=== PATIENT | female | born 1980 | race Hispanic/Latino ===

== ENCOUNTER 2020-01-20 02:59 | Emergency (ER) | payer SELFPAY ==
[~2020-01-20] VITALS: Ht 162.6 cm; Wt 105.2 kg
--- NOTE | 2020-01-20 03:30 | Emergency Department Note ---
History of Present Illnes History of Present Illness Chief Complaint: Extremity Trauma/Pain History of Present Illness This is a 39 year old female right sided toure pain with swelling for 3 weeks. Patient states she saw a PCP recently and was told she was diabetic and to follow up with him in a couple of weeks if pain did not go away. No swelling or redness noted to lower extremity... Historian: Patient Arrival Mode: [employer] Required: No Onset (how long ago): week(s) (3) Location: right toure Quality: pain Radiation: Reports non-radiation Severity: mild Onset quality: sudden Duration (how long): week(s) (3) Timing of current episode: constant Progression: unchanged Chronicity: new Context: Denies recent illness, Denies recent surgery, Denies trauma/injury Relieving factors: none Exacerbating factors: movement Associated symptoms: Reports denies other symptoms Treatments prior to arrival: none Past Medical/Family History Physician Review I have reviewed the patient's past medical and family history. Any updates have been documented here. Past Medical History Recent Fever: No Clinical Suspicion of Infectio: No New/Unexplained Change in Ment: No Past Medical History: Diabetes, Hyperlipedemia Past Surgical History: Cholecysctectomy, Hysterectomy, Other Surgery: left toe Social History Smoking Cessation: Never Smoker Alcohol Use: Occasional Any Illegal Drug Use: No Family History Family history of heart diseas: No Other family history htn,dm Review of Systems Review of Systems Constitutional: Reports no symptoms EENTM: Reports no symptoms Cardiovascular: Reports no symptoms Respiratory: Reports no symptoms Gastrointestinal: Reports no symptoms Genitourinary: Reports no symptoms Musculoskeletal: Reports as per HPI Integumentary: Reports no symptoms Neurological: Reports no symptoms Psychological: Reports no symptoms Endocrine: Reports no symptoms Hematological/Lymphatic: Reports no symptoms Physical Exam Related Data Allergies: Coded Allergies: No Known Allergies (Unverified , 01/20/20) Triage Vital Signs Vital Signs Date Time Temp Pulse Resp B/P (MAP) Pulse Ox O2 Delivery O2 Flow Rate FiO2 01/20/20 03:15 98.3 104 20 144/99 99 Room Air Vital signs reviewed: Yes Physical Exam CONSTITUTIONAL Constitutional: Present well-developed, Present well-nourished HENT HENT: Present normocephalic, Present atraumatic, Present oropharynx clear/moist, Present nose normal HENT L/R: Present left ext ear normal, Present right ext ear normal EYES Eyes: Reports PERRL, Reports conjunctivae normal NECK Neck: Present ROM normal PULMONARY Pulmonary: Present effort normal, Present breath sounds normal CARDIOVASCULAR Cardiovascular: Present regular rhythm, Present heart sounds normal, Present capillary refill normal, Present normal rate GASTROINTESTINAL Abdominal: Present soft, Present nontender, Present bowel sounds normal GENITOURINARY Genitourinary: Present exam deferred SKIN Skin: Present warm, Present dry MUSCULOSKELETAL Musculoskeletal: Present ROM normal, Present tenderness (point tenderness to anterior right skin 9 cm below tibial plateau); Absent edema, Absent deformity NEUROLOGICAL Neurological: Present alert, Present oriented x 3, Present no gross motor or sensory deficits PSYCHOLOGICAL Psychological: Present mood/affect normal, Present judgement normal Results Imaging Imaging results reviewed: Yes Impressions Procedure: [id number] DX/LOWER LEG RIGHT Exam Date: 01/20/20 Exam Time: 033 REPORT STATUS: Signed X-ray right tib-fib 2 views HISTORY: Pain. COMPARISON: None available. FINDINGS: Bones: No acute displaced fracture. No osseous lesion. Osseous alignment is within normal limits. Joints: The joint spaces are well-maintained. Soft tissues: Mild edema in the calf. IMPRESSION: No acute radiographic osseous abnormality. Mild edema in the calf. Signed by: Romina Frausto DO on 01/20/2020 4:01 AM Dictated By: ROMINA FRAUSTO DO 0 Transcribed By: GINA on 01/20/20400 COPY TO: JOSE ALFREDO MARTIN MD~ Assessment & Plan Medical Decision Making MDM xray right lower leg ordered to eval for osteolytic lesion, occult fracture Assessment & Plan Final Impression: (1) Right leg pain Depart Disposition: HOME, SELF-CARE Last Vital Signs Date Time Temp Pulse Resp B/P (MAP) Pulse Ox O2 Delivery O2 Flow Rate FiO2 01/20/20 03:15 98.3 104 20 144/99 99 Room Air JOSE ALFREDO MARTIN MD Jan 20, 2020 03:30
--- NOTE | 2020-01-20 04:04 | Diagnostic Imaging Report ---
X-ray right tib-fib 2 views HISTORY: Pain. COMPARISON: None available. FINDINGS: Bones: No acute displaced fracture. No osseous lesion. Osseous alignment is within normal limits. Joints: The joint spaces are well-maintained. Soft tissues: Mild edema in the calf. IMPRESSION: No acute radiographic osseous abnormality. Mild edema in the calf. Signed by: Rahul Frausto DO on 01/20/2020 4:01 AM
== END 2020-01-20 04:15 | disposition home or self-care (01) ==
LOC: ER 03:07
DX: M79.604 Pain in right leg (principal); E11.9 Type 2 diabetes mellitus without complications; E78.5 Hyperlipidemia, unspecified
CPT/HCPCS: 99283